=== PATIENT | female | born 2000 | race Caucasian/White ===

== ENCOUNTER 2024-06-08 10:58 | Outpatient (AMB) | payer OTHER, SELFPAY ==
--- NOTE | 2024-06-08 11:00 | MHC.OFFWIV ---
Intake Vital Signs 06/08/24 11:07 06/08/24 11:22 Height 5 ft 2 in Weight 174 lb BMI 31.8 BP 122/80 Blood Pressure Location Rt brachial Position Sitting Pulse 124 H 99 Pulse Source Pulse Oximeter Temp 99.3 F Temp Source Oral Pulse Oximetry (%) 98 Oxygen Delivery Method Room Air Intake Visit Reasons: [employer] ? UTI Intake Note: Patient here for lower back pain, pain when urinating and frequent urination which has been going on since yesterday. Family hx of kidney issues. Patient Tobacco Use Status: Never used Tobacco Allergies azithromycin [AZITHROMYCIN] Allergy (Mild, Unverified 06/08/24 11:06) RASH Sulfa (Sulfonamide Antibiotics) [SULFA (SULFONAMIDE ANTIBIOTICS)] Allergy (Mild, Unverified 06/08/24 11:06) RASH Do you need a note to return to daycare/school/sports/work: No HPI [employer] ? UTI HPI Details This note is constructed using voice recognition software. While every effort has been made to ensure accuracy, cane cutter errors may have been included. The patient is a 23 year old female who presents to the clinic today with urinary frequency, urgency, and burning. She reports that last week she struggled with a rectal fissure which she had been slowly constipated prior to, that has since resolved. Yesterday she woke and she had her symptoms of a urinary tract infection. She did nothing to try to treat it, and decided that since the symptoms were ongoing today that she would come in to be evaluated. She was seen in a different urgent care about 2 months ago with similar symptoms, and her urine test was negative then. [facility] Social History Patient Tobacco Use Status: Never used Tobacco Review of Systems Const All systems reviewed & are unremarkable except as noted in HPI and below Physical Exam Vital Signs: Last Vital Signs Temp 99.3 F 06/08/24 11:07 Pulse 124 H 06/08/24 11:07 BP 122/80 06/08/24 11:07 Pulse Ox 98 06/08/24 11:07 Oxygen Delivery Method Room Air 06/08/24 11:07 BMI result Body Mass Index 31.8 Const General: cooperative, healthy appearing, comfortable, no acute distress and well developed Orientation/consciousness: patient oriented x3 Limitations: no limitations Resp Effort & Inspection: normal respiratory effort and able to speak in complete sentences General: Yes no CVA tenderness Back/Spine/Pelvis Back: no CVA tenderness Neuro General: patient oriented x3 Assessment & Plan Assessment & Plan (1) Dysuria: Code(s): R30.0 - Dysuria Plan: In office urine inconsistent with urinary tract infection, however patient does have symptoms that are concerning for UTI, and we will treat based on symptoms. Antibiotics sent to requested pharmacy. Advised patient to follow up with ongoing symptoms worsening symptoms, or failure to resolve as she would likely benefit from a pelvic exam at that time. Additionally I advised patient to increase her hydration to help with both these symptoms as well as her constipation symptoms as mentioned above. Plan See above for full details and plan. Medications: New nitrofurantoin monohyd/m-cryst 100 mg must administer with a meal/food 100 mg PO Q12H 5 days 10 caps 0RF Coding Level of Care Code Est Pt Level 3 (59721) Diagnoses Dysuria R30.0
[2024-06-08 11:07] VITALS: BP 122/80; PULSE 124; TEMP 37.4; O2SAT 98; BMI 31.8
[2024-06-08 11:22] VITALS: PULSE 99
== END 2024-06-08 11:49 | disposition home or self-care (01) ==
PROVIDERS: PCP Pediatrics; Visit Provider Registered Nurse
DX: R30.0 Dysuria (principal); Z13.9 Encounter for screening, unspecified

== ENCOUNTER → 2024-06-08 10:58 | Outpatient (BNVA) | payer OTHER, SELFPAY | PROVIDERS: PCP Pediatrics; Visit Provider Registered Nurse | DX: R30.0 Dysuria (principal) | CPT/HCPCS: 81003; 99212 ==